=== PATIENT | male | born 1975 | race Caucasian/White ===

== ENCOUNTER 2022-04-02 18:39 | Inpatient (IN) | payer OTHER ==
[2022-04-02 19:25] VITALS: BMI 30.9
[2022-04-02] MEDS ORDERED: DICYCLOMINE HCL 10 MG CAPSULE PO PRN (21:06)
[2022-04-02] MEDS ORDERED: ACETAMINOPHEN 325 MG TABLET (FP) PO PRN ×2 (21:06)
[2022-04-02] MEDS ORDERED: NALOXONE HCL (KLOXXADO) 8 MG SPRAY NS PRN (21:06)
[2022-04-02] MEDS ORDERED: POLYETHYLENE GLYCOL (HEALTHYLAX) 3350 17 GM PACKET PO PRN (21:06)
[2022-04-02] MEDS ORDERED: NICOTINE 10 MG CARTRIDGE (INHALER) IH PRN (21:06)
[2022-04-02] MEDS ORDERED: BENZOCAINE/MENTHOL (CHLORASEPTIC ) LOZENGE MM PRN (21:06)
[2022-04-02] MEDS ORDERED: IBUPROFEN 400 MG TABLET (FP) PO PRN (21:06)
[2022-04-02] MEDS ORDERED: MAGNESIUM HYDROX 2400MG/30ML ORAL SUSPENSION 30 ML CUP PO PRN (21:06)
[2022-04-02] MEDS ORDERED: LOPERAMIDE HCL 2 MG CAPSULE PO PRN (21:06)
[2022-04-02] MEDS ORDERED: ONDANSETRON *ODT* 4 MG TABLET SL PRN (21:06)
[2022-04-02] MEDS ORDERED: MAG HYDROX/AL HYDROX/SIMETH 30 ML UNIT-DOSE CUP PO PRN (21:06)
[2022-04-02] MEDS ORDERED: methaDONE HCL 10 MG TABLET (FOR DETOX USE ONLY) PO ONE ×2 (21:10→22:45)
[2022-04-02] MEDS ORDERED: cloNIDine HCL 0.1 MG TABLET PO PRN (21:10)
[2022-04-02] MEDS ORDERED: diazePAM 5 MG TABLET PO PRN (21:10)
[2022-04-02] MEDS ORDERED: MELATONIN 5 MG TABLETS PO SCH (22:00)
[2022-04-02] MEDS: THIAMINE HCL 100 MG TABLET (FP) PO SCH (22:43)
[2022-04-02] MEDS: diazePAM 5 MG TABLET PO SCH (22:43)
[2022-04-02] MEDS: BISMUTH SUBSALICYLATE 524 MG/30 ML PO PRN (22:45)
[2022-04-03] MEDS: diazePAM 5 MG TABLET PO SCH ×4 (05:02→22:17)
[2022-04-03] MEDS: BISMUTH SUBSALICYLATE 524 MG/30 ML PO PRN (07:37)
[2022-04-03] MEDS: PRENATAL VITAMINS W/ FOLIC ACID TABLET (FP) PO SCH (10:07)
[2022-04-03] MEDS: METHOCARBAMOL 500 MG TABLET PO PRN ×2 (10:07→22:20)
[2022-04-03] MEDS: NICOTINE 14 MG/24 HOURS TOPICAL PATCH TD SCH (10:14)
[2022-04-03] MEDS ORDERED: methaDONE HCL 10 MG TABLET (FOR DETOX USE ONLY) PO ONE (10:48)
[2022-04-03] MEDS ORDERED: diazePAM 5 MG TABLET PO SCH (11:00)
[2022-04-03] MEDS: PANTOPRAZOLE 40 MG TABLET PO SCH (11:40)
[2022-04-03] MEDS: IBUPROFEN 600 MG TABLET (FP) PO PRN (16:49)
[2022-04-03] MEDS: THIAMINE HCL 100 MG TABLET (FP) PO SCH (22:17)
[2022-04-03] MEDS: SUVOREXANT 10 MG TABLET PO PRN (22:19)
[2022-04-04] MEDS: diazePAM 5 MG TABLET PO SCH ×3 (05:33→22:35)
[2022-04-04] MEDS ORDERED: diazePAM 5 MG TABLET PO SCH (06:00)
[2022-04-04] MEDS ORDERED: methaDONE HCL 10 MG TABLET (FOR DETOX USE ONLY) PO ONE (10:00)
[2022-04-04] MEDS: NICOTINE 14 MG/24 HOURS TOPICAL PATCH TD SCH (10:12)
[2022-04-04] MEDS: PANTOPRAZOLE 40 MG TABLET PO SCH (10:13)
[2022-04-04] MEDS: PRENATAL VITAMINS W/ FOLIC ACID TABLET (FP) PO SCH (10:13)
[2022-04-04 13:48] LABS: HEMATOCRIT 38.2 % (35.4-49); HEMOGLOBIN 12.9 GM/dL (11.7-16.9); MCH 28.9 pg (25.7-33.7); MCHC 33.9 g/dl (32.0-35.9); MEAN CELL VOLUME 85.3 fl (80-96); MEAN PLT VOLUME 7.9 fl (7.5-11.1); PLATELET COUNT 161 10^3/uL (134-434); RBC 4.48 M/mm3 (4.00-5.60); RDW 14.1 % (11.9-15.9); WHITE BLOOD COUNT 5.4 K/mm3 (4.0-10.0)
[2022-04-04 14:41] LABS: CALCIUM 8.3 mg/dL (8.5-10.1)
[2022-04-04 14:42] LABS: ALBUMIN 2.9 g/dl (3.4-5.0); BLOOD UREA NITROGEN 15.6 mg/dL (7-18)
[2022-04-04 14:45] LABS: CREATININE 0.7 mg/dL (0.55-1.3)
[2022-04-04 14:46] LABS: BILIRUBIN,TOTAL 0.3 mg/dL (0.2-1)
[2022-04-04] MEDS: SUVOREXANT 10 MG TABLET PO PRN (22:34)
[2022-04-04] MEDS: THIAMINE HCL 100 MG TABLET (FP) PO SCH (22:36)
[2022-04-05] MEDS ORDERED: diazePAM 5 MG TABLET PO SCH ×2 (06:00)
[2022-04-05] MEDS: diazePAM 5 MG TABLET PO SCH ×2 (06:23→17:39)
[2022-04-05] MEDS ORDERED: methaDONE HCL 10 MG TABLET (FOR DETOX USE ONLY) PO ONE (10:00)
[2022-04-05] MEDS: PRENATAL VITAMINS W/ FOLIC ACID TABLET (FP) PO SCH (10:30)
[2022-04-05] MEDS: PANTOPRAZOLE 40 MG TABLET PO SCH (10:30)
[2022-04-05] MEDS: NICOTINE 14 MG/24 HOURS TOPICAL PATCH TD SCH (10:32)
[2022-04-05] MEDS: METHOCARBAMOL 500 MG TABLET PO PRN (17:39)
[2022-04-05] MEDS: THIAMINE HCL 100 MG TABLET (FP) PO SCH (22:55)
[2022-04-06] MEDS ORDERED: diazePAM 5 MG TABLET PO SCH (06:00)
[2022-04-06] MEDS ORDERED: diazePAM 5 MG TABLET PO ONE ×2 (06:00)
[2022-04-06 06:19] VITALS: RESP 18
[2022-04-06] MEDS ORDERED: methaDONE HCL 10 MG TABLET (FOR DETOX USE ONLY) PO ONE (10:00)
[2022-04-06] MEDS: METHOCARBAMOL 500 MG TABLET PO PRN (10:36)
[2022-04-06] MEDS: PANTOPRAZOLE 40 MG TABLET PO SCH (10:36)
[2022-04-06] MEDS: PRENATAL VITAMINS W/ FOLIC ACID TABLET (FP) PO SCH (10:36)
[2022-04-06] MEDS: NICOTINE 14 MG/24 HOURS TOPICAL PATCH TD SCH (10:37)
[2022-04-06 14:03] VITALS: BP 137/78; PULSE 77; TEMP 96.9
[2022-04-06] MEDS: IBUPROFEN 600 MG TABLET (FP) PO PRN (14:56)
[2022-04-06] MEDS ORDERED: SUVOREXANT 10 MG TABLET PO PRN (22:00)
[2022-04-07] MEDS ORDERED: diazePAM 5 MG TABLET PO ONE (06:00)
[2022-04-07] MEDS ORDERED: methaDONE HCL 10 MG TABLET (FOR DETOX USE ONLY) PO ONE (10:00)
== END 2022-04-06 14:48 | disposition home or self-care (01) | DRG 773 ==
LOC: YASAS 18:39 → Y6N 21:31 → UNDODISIN 04-03 17:15
PROVIDERS: ADMIT Allergy & Immunology; ATTEND Surgery
PROC: HZ2ZZZZ Detoxification Services for Substance Abuse Treatment (ICD-10-PCS; principal; 2022-04-02)
DX: F11.23 Opioid dependence with withdrawal (principal); F13.20 Sedative, hypnotic or anxiolytic dependence, uncomplicated; F14.20 Cocaine dependence, uncomplicated; F17.210 Nicotine dependence, cigarettes, uncomplicated; F33.1 Major depressive disorder, recurrent, moderate; F19.282 Other psychoactive substance dependence with psychoactive substance-induced sleep disorder; F19.280 Other psychoactive substance dependence with psychoactive substance-induced anxiety disorder; K21.9 Gastro-esophageal reflux disease without esophagitis; B18.2 Chronic viral hepatitis C; R76.11 Nonspecific reaction to tuberculin skin test without active tuberculosis; Z62.810 Personal history of physical and sexual abuse in childhood
CPT/HCPCS: 36415; 71046-TC-FY; 80053; 85027; 86780; 93005; 93010; C9803-CS; U0003; U0005